=== PATIENT | female | born 1990 | race African-American/Black ===

== ENCOUNTER 2023-10-27 09:59 | Emergency (ER) | payer MEDICAID ==
[~2023-10-27] VITALS: Ht 157.5 cm; Wt 98.9 kg
[2023-10-27 10:57] VITALS: BP 147/97; PULSE 82; RESP 18; TEMP 98.7; O2SAT 97
== END 2023-10-27 11:38 | disposition home or self-care (01) ==
LOC: ER 09:59
DX: O26.893 Other specified pregnancy related conditions, third trimester (principal); R60.0 Localized edema; I82.4Z2 Acute embolism and thrombosis of unspecified deep veins of left distal lower extremity; Z3A.36 36 weeks gestation of pregnancy
CPT/HCPCS: 93971